=== PATIENT | female | born 1975 | race Caucasian/White ===

== ENCOUNTER 2017-07-09 13:27 | Emergency (ER) | payer BC ==
[2017-07-09] MEDS ORDERED: OXYCODONE-ACETAMINOPHEN 5-325 MG TABLET PO ONE (15:06)
--- NOTE | 2017-07-09 15:15 | ER Document Report ---
ED Neck/Back Problem - General Chief Complaint: Back Pain Stated Complaint: BACK PAIN Time Seen by Provider: 07/09/17 14:52 Information source: Patient Notes: 41-year-old female who presents today stating around 10 days ago she was twisting to put her child in the back seat when she felt a strain to her lower back. She states that the pain has persisted. She states worse with movement. She denies any incontinence, fever, weakness numbness to the legs. Patient has a history of the same episode previously 1. TRAVEL OUTSIDE OF THE [place] IN LAST 30 DAYS: No - HPI Patient complains to provider of: Lower back Onset: Other - See above Where: Other - See above Onset: Sudden Timing: Waxing and waning Quality of pain: Achy Severity: Moderate Pain Level: 2 Context: Other - See above Recent injury: No Associated symptoms: Other - See above Exacerbated by: Movement of trunk Similar symptoms previously: Yes Recently seen / treated by doctor: No - Related Data Allergies/Adverse Reactions: No Known Allergies Allergy (Verified 07/09/17 13:27) Past Medical History - General Information source: Patient - Social History Smoking Status: Unknown if Ever Smoked Cigarette use (# per day): No Chew tobacco use (# tins/day): No Smoking Education Provided: No Frequency of alcohol use: None Family History: Reviewed & Not Pertinent - Past Medical History Cardiac Medical History: Denies: Hx Atrial Fibrillation, Hx Hypercholesterolemia, Hx Hypertension Pulmonary Medical History: Reports: Hx Bronchitis, Hx Pneumonia GI Medical History: Reports: Hx Gastroesophageal Reflux Disease Musculoskeltal Medical History: Reports Hx Musculoskeletal Trauma - Thumb fracture Psychiatric Medical History: Reports: Hx Attention Deficit Hyperactivity Disorder, Hx Depression - anxiety Traumatic Medical History: Reports: Hx Fractures - Thumb - Immunizations Immunizations up to date: Yes Hx Diphtheria, Pertussis, Tetanus Vaccination: Yes Review of Systems - Review of Systems Constitutional: denies: Fever Respiratory: denies: Short of breath Gastrointestinal: denies: Vomiting Genitourinary: denies: Dysuria Skin: denies: Rash Physical Exam - Vital signs Vitals: Temp Pulse Resp BP Pulse Ox 98.5 F 89 16 135/63 H 98 07/09/17 13:31 07/09/17 13:31 07/09/17 13:31 07/09/17 13:31 07/09/17 13:31 Notes: Reviewed vital signs and nursing note as charted by RN. CONSTITUTIONAL: Alert and oriented and responds appropriately to questions. Well -appearing; well-nourished HEAD: Normocephalic; atraumatic ABD/GI: Normal bowel sounds; non-distended; soft, non-tender BACK: Patient has no obvious swelling, erythema, or induration. Minimal tenderness without step-offs to the mid lumbar spine EXT: Normal ROM in all joints; non-tender to palpation; no edema SKIN: No acute lesions noted NEURO: Moves all extremities equally; Motor and sensory function intact; 2+ patellar reflexes bilaterally PSYCH: The patient's mood and manner are appropriate. Grooming and personal hygiene are appropriate. Course - Re-evaluation Re-evalutation: 07/09/17 15:15 Given the history and physical examination I do believe acute cord compression to be unlikely. I will order baseline x-ray of the lumbar spine. I will also provide pain medications. If the x-ray is unremarkable, patient will be discharged home with strict return precautions and follow-up with orthopedics. 07/09/17 16:06 X-rays recorded. No change in examination. Patient will be discharged home with strict return precautions, orthopedic follow-up, and pain medications. - Vital Signs Vital signs: Temp Pulse Resp BP Pulse Ox 98.5 F 89 16 135/63 H 98 07/09/17 13:31 07/09/17 13:31 07/09/17 13:31 07/09/17 13:31 07/09/17 13:31 Discharge - Discharge Clinical Impression: Lumbar spine strain Qualifiers: Encounter type: initial encounter Qualified Code(s): S39.012A - Strain of muscle, fascia and tendon of lower back, initial encounter Condition: Good Disposition: HOME, SELF-CARE Additional Instructions: Come back immediately for any increased pain, incontinence, fevers, vomiting, weakness or numbness of your legs or groin area, or any other acute problems. Please follow-up with orthopedics as we have discussed. Prescriptions: Hydrocodone/Acetaminophen [Lawrence 5-325 Tablet] 1 each PO Q6 PRN #12 tablet PRN Reason: For Pain Ibuprofen [Motrin 600 Mg Tablet] 600 mg PO Q6H PRN #30 tablet PRN Reason: for pain Oxycodone HCl/Acetaminophen [Percocet 5-325 mg Tablet] 1 - 2 tab PO ASDIR PRN # 15 tablet PRN Reason: Referrals: TAJ PACHECO MD [Primary Care Provider] - Follow up as needed
--- NOTE | 2017-07-09 16:03 | RADIOLOGY REPORT (SQ) ---
EXAM DESCRIPTION: L SPINE WHOLE COMPLETED DATE/TIME: 07/09/2017 3:56 pm REASON FOR STUDY: 13hw, pain COMPARISON: None. NUMBER OF VIEWS: Five views including obliques. TECHNIQUE: AP, lateral, oblique, and sacral radiographic images acquired of the lumbar spine. LIMITATIONS: None. FINDINGS: MINERALIZATION: Normal. SEGMENTATION: Normal. No transitional anatomy. ALIGNMENT: Normal. VERTEBRAE: Maintained height. No fracture or worrisome bone lesion. DISCS: Preserved height. No significant osteophytes or end plate irregularity. POSTERIOR ELEMENTS: Pedicles and facets are intact. No pars defect or posterior arch defects. HARDWARE: None in the spine. PARASPINAL SOFT TISSUES: Normal. PELVIS: Intact as visualized. No fractures or worrisome bone lesions. SI joints intact. OTHER: No other significant finding. IMPRESSION: NORMAL 5 VIEW LUMBAR SPINE. TECHNICAL DOCUMENTATION: JOB ID: [id number] [employer]- All Rights Reserved Reading location - IP/workstation name: [email or web address]
[2017-07-09 16:19] VITALS: BP 114/55
== END 2017-07-09 16:19 | disposition home or self-care (01) ==
LOC: ER 13:27
DX: S39.012A Strain of muscle, fascia and tendon of lower back, initial encounter (principal); X50.1XXA Overexertion from prolonged static or awkward postures, initial encounter; Y93.89 Activity, other specified
CPT/HCPCS: 72110; 99283

== ENCOUNTER 2018-10-09 12:21 | Emergency (ER) | payer BC ==
[2018-10-09 12:36] VITALS: BP 145/84
[2018-10-09] MEDS ORDERED: KETOROLAC TROMETHAMINE 60 MG/2 ML SDV IM ONE (12:43)
--- NOTE | 2018-10-09 12:48 | ER Document Report ---
HPI - HPI Patient complains to provider of: Neck pain Time Seen by Provider: 10/09/18 12:33 Onset: Other - Other day Onset/Duration: Persistent Quality of pain: Achy Severity: Severe Pain Level: 4 Context: Patient presents to the emergency department with complaints of pain to the left side base of her skull that started Monday morning when she woke up. She reports she figured she slept wrong. She now complains that the pain is radiating to her jaw into her arm left side reports she feels like she has earache on her left side and blurred vision. Denies trauma. Denies other symptoms such as fever vomiting diarrhea, denies chest pain shortness of breath.. Denies past medical history of injury. Associated Symptoms: None Exacerbated by: Movement Relieved by: Denies Similar symptoms previously: No Recently seen / treated by doctor: No - REPRODUCTIVE Reproductive: DENIES: : - DERM Skin Color: Normal Past Medical History - General Information source: Patient Last Menstrual Period: 09/21/18 - Social History Smoking Status: Never Smoker Chew tobacco use (# tins/day): No Frequency of alcohol use: Rare Drug Abuse: None Occupation: [employer] Lives with: Family Family History: Reviewed & Not Pertinent Patient has suicidal ideation: No Patient has homicidal ideation: No - Past Medical History Cardiac Medical History: Denies: Hx Atrial Fibrillation, Hx Hypercholesterolemia, Hx Hypertension Pulmonary Medical History: Reports: Hx Bronchitis, Hx Pneumonia Renal/ Medical History: Denies: Hx Peritoneal Dialysis GI Medical History: Reports: Hx Gastroesophageal Reflux Disease Musculoskeletal Medical History: Reports Hx Musculoskeletal Trauma - Thumb fracture Psychiatric Medical History: Reports: Hx Attention Deficit Hyperactivity Disorder, Hx Depression - anxiety Traumatic Medical History: Reports: Hx Fractures - Thumb Surgical Hx: Negative - Immunizations Immunizations up to date: Yes Hx Diphtheria, Pertussis, Tetanus Vaccination: Yes Vertical Provider Document - CONSTITUTIONAL Agree With Documented VS: Yes Exam Limitations: No Limitations General Appearance: WD/WN, No Apparent Distress - INFECTION CONTROL TRAVEL OUTSIDE OF THE [place] IN LAST 30 DAYS: No - HEENT HEENT: Atraumatic, Normal ENT Exam, Normocephalic. negative: Conjuctival Injection, Pharyngeal Exudate, Pharyngeal Erythema, Tympanic Membrane Red, Tympanic Membrane Bulging - NECK Neck: Normal Inspection, Supple - Patient is able to look up with down turning side to side with her head but complains of pain doing this. Patient complains of focused tenderness to the base of left skull no erythema no swelling no warmth noted. negative: Lymphadenopathy-Left, Lymphadenopathy-Right - RESPIRATORY Respiratory: Breath Sounds Normal, No Respiratory Distress - CARDIOVASCULAR Cardiovascular: Regular Rate - GI/ABDOMEN Gastrointestinal: Abdomen Soft, Abdomen Non-Tender - MUSCULOSKELETAL/EXTREMETIES Musculoskeletal/Extremeties: MAEW, FROM - Good founding partner no weakness, Non-Tender - NEURO Level of Consciousness: Awake, Alert, Appropriate Motor/Sensory: No Motor Deficit - DERM Integumentary: Warm, Dry Adult Front & Back Diagram: 1 - Patient complains of tenderness with palpation 2 - Patient reports tenderness with palpation Course - Re-evaluation Re-evalutation: 10/09/18 12:50 She was instructed on plan of care to include Toradol and muscle relaxers. Warm packs. Patient was instructed to follow-up with primary care recheck within 1 week or return to the emergency department for worsening symptoms she verbalized understanding Dictation of this chart was performed using voice recognition software; therefore, there may be some unintended grammatical errors. - Vital Signs Vital signs: Temp Pulse Resp BP Pulse Ox 99.4 F 92 18 145/84 H 98 10/09/18 12:34 10/09/18 12:34 10/09/18 12:34 10/09/18 12:34 10/09/18 12:34 Discharge - Discharge Clinical Impression: Neck pain, trapezius pain Condition: Stable Disposition: HOME, SELF-CARE Instructions: Anti-Inflammatory Medication ([facility]), Muscle Relaxers ([facility]), Toradol Injection ([facility]), Warm Packs ([facility]) Additional Instructions: *You have been evaluated for neck pain at the left side base of your skull. *warm packs, massage as discussed *Follow up with your primary care provider within 1 week *Take medication as prescribed *Continue to take Aleve as indicated *Return to ED for worsening condition, changes, needs, concerns Prescriptions: Cyclobenzaprine HCl [Flexeril 5 mg Tablet] 5 mg PO TID #15 tablet Forms: Return to Work Referrals: TAJ PACHECO MD [ACTIVE STAFF] - Follow up in 1 week
== END 2018-10-09 12:55 | disposition home or self-care (01) ==
LOC: ER 12:21
DX: M54.2 Cervicalgia (principal); M25.512 Pain in left shoulder; H92.02 Otalgia, left ear; H53.8 Other visual disturbances
CPT/HCPCS: 99283; 96372; J1885

== ENCOUNTER → 2019-01-31 | Outpatient (CLI) | payer BC ==
[2019-01-31 15:43] LABS: BACTERIA (WET MOUNT) 4+ BACTERIA SEEN; EPITHELIALS (WET MOUNT) 4+ EPITHELIALS SEEN; RBCS (WET MOUNT) 1+ RBCS SEEN; T.VAGINALIS (WET MOUNT) NO TRICHOMONAS SEEN; WBCS (WET MOUNT) 3+ WBCS SEEN; YEAST (WET MOUNT) NO YEAST SEEN
[2019-01-31 17:15] LABS: CHLAM PCR NOT DETECTED (NOT DETECT)
== END ==
LOC: LAB 15:33
PROVIDERS: ATTEND Nurse Practitioner Acute Care
DX: N89.8 Other specified noninflammatory disorders of vagina (principal)
CPT/HCPCS: 87210; 87491; 87591

== ENCOUNTER → 2020-05-20 | Outpatient (CLI) | payer MEDICAID ==
--- NOTE | 2020-05-20 12:22 | RADIOLOGY REPORT (SQ) ---
EXAM DESCRIPTION: U/S NON-OB PELVIS TV W/O DOP IMAGES COMPLETED DATE/TIME: 05/20/2020 10:12 am REASON FOR STUDY: R10.2 PELVIC AND PERINEAL PAIN R10.2 PELVIC AND PERINEAL PAIN LMP 05/02/2020 COMPARISON: None. TECHNIQUE: Dynamic and static grayscale images acquired of the pelvis via transvaginal approach and recorded on PACS. Additional selected color Doppler and spectral images recorded. LIMITATIONS: None. FINDINGS: UTERUS: There is a 28 mm fibroid. ENDOMETRIAL STRIPE: No focal or generalized thickening. No masses. CERVIX: 2.6 cm. No nabothian cysts. RIGHT OVARY AND DOPPLER: Ovary not seen. LEFT OVARY AND DOPPLER: Ovary not seen. FREE FLUID: None noted. OTHER: No other significant finding. MEASUREMENTS: UTERUS: 9.5 x 5.3 x 5.3 cm. ENDOMETRIAL STRIPE: 15 mm. RIGHT OVARY: Not seen. LEFT OVARY: Not seen. IMPRESSION: Small uterine fibroid. The ovaries were not seen. TECHNICAL DOCUMENTATION: JOB ID: [id number] [email or web address]- All Rights Reserved Rev-09/22 Reading location - IP/workstation name: [email or web address]
== END ==
LOC: RAD 09:15
PROVIDERS: ATTEND Nurse Practitioner Family
DX: D25.9 Leiomyoma of uterus, unspecified (principal); R10.2 Pelvic and perineal pain
CPT/HCPCS: 76830